=== PATIENT | female | born 1975 | race Caucasian/White ===

== ENCOUNTER 2017-03-07 20:11 | Emergency (ER) | payer OTHER ==
[~2017-03-07] VITALS: Ht 154.9 cm; Wt 62.0 kg
[~2017-03-07 20:11] MED LIST: ALL DAY ALLERGY10 MG PO; BENTYL20 MG PO; BUTALB-CAFF-AC1 EACH PO; CARISOPRODOL350 MG PO; CETIRIZINE HCL10 M2 PO; FIORICET,ESG1 TABLET PO; GABAPENTIN400 MG PO; HYDROCHLOROTHIA25 MG PO; HYDROCODON-ACE1 EAC8 PO; LEVAQUIN500 MG PO; LIDODERM 5% P1 PATCH TD; LODINE200 MG PO; LYRICA100 MG PO; METHADONE HCL40 MG PO; MOBIC15 MG PO; MORPHINE SULFAT15 M1 PO; MORPHINE SULFAT30 M2 PO; MOTRIN400 MG PO; MOTRIN800 MG PO; NEURONTIN600 MG PO; ONDANSETRON HCL4 MG PO; PERCOCET 5/31 TABLET PO; PREDNISONE20 MG PO; PROMETHAZINE HC25 M1 PO; REGLAN10 MG PO; TOPAMAX50 MG PO; TOPIRAMATE25 MG PO; TORADOL10 MG PO; TYLENOL WITH C1 EACH PO; VENTOLIN HFA18 GM IH; VICODIN,LORT1 TABLET PO; VOLTAREN75 MG PO; ZOCOR20 MG PO
[2017-03-07 21:12] LABS: HEMATOCRIT 46.3 % (36.0-46.0); MCH 30.2 PG (29.0-34.0); MCHC 33.5 G/DL (30.0-36.0); MCV 90.3 FL (83-99); RBC DIS.WIDTH-SD 42.8 % (39-53); RED BLOOD COUNT 5.13 M/uL (3.80-5.20); WHITE BLOOD COUNT 10.3 K/uL (4.1-10.2)
[2017-03-07 21:44] LABS: CHLORIDE 113 mEq/L (99-109); POTASSIUM 3.3 mEq/L (3.7-5.4); SODIUM 139 mEq/L (136-147)
[2017-03-07 21:46] LABS: ADD MIUA? NO; BILIRUBIN NEGATIVE; BLOOD NEGATIVE; COLOR YELLOW ((YELLOW)); GLUCOSE (STRIP) NEGATIVE; KETONES NEGATIVE; LEUKOCYTES NEGATIVE; NITRITE NEGATIVE; PROTEIN (STRIP) NEGATIVE; SPECIFIC GRAVITY 1.012 (1.000-1.030); UCUL ADDED? NO; UROBILINOGEN 0.2 MG/DL (0.2-1.0)
[2017-03-07 21:46] LABS: GLUCOSE 84 mg/dL (70-99)
[2017-03-07 21:47] LABS: ANION GAP 7 MEQ/L (2-14)
[2017-03-07 21:48] LABS: TOTAL BILIRUBIN 0.2 mg/dL (0.0-1.0)
[2017-03-07 21:49] LABS: ALKALINE PHOSPHATASE 73 IU/L (3-129)
[2017-03-07 21:50] LABS: GFR ESTIMATE (CALCULATED) > 59 mL/min/
[2017-03-07 21:51] LABS: UREA NITROGEN (BUN) 7 mg/dL (9-23)
[2017-03-07 21:53] LABS: LIPASE 9 U/L (1.0-51.0)
[2017-03-07 21:59] LABS: QUANTITATIVE HCG < 4.0 MIU/ML
[2017-03-07 22:25] LABS: MEAN PLAT.VOLUME 11.6 uM^3 (9.5-12.4); PLAT.SUFFICIENCY ADEQUATE; PLATELET COUNT 212 K/uL (156-360)
[2017-03-08] MEDS ORDERED: CIPRO500 MG PO (00:19)
[2017-03-08] MEDS ORDERED: ZOFRAN ODT4 MG PO (00:21)
[2017-03-08 00:31] VITALS: BP 127/90
== END 2017-03-08 00:32 | disposition home or self-care (01) ==
LOC: EME 20:11
PROVIDERS: Physician Assistant Medical
DX: R19.7 Diarrhea, unspecified (principal); R11.2 Nausea with vomiting, unspecified; R10.31 Right lower quadrant pain; R10.32 Left lower quadrant pain; I10 Essential (primary) hypertension; D25.9 Leiomyoma of uterus, unspecified; F17.200 Nicotine dependence, unspecified, uncomplicated; Z88.0 Allergy status to penicillin
CPT/HCPCS: 74177; 76856; 80053; 81003; 83690; 84702; 85027; 99281; 99285; J1885; J2405; J7030

== ENCOUNTER 2017-04-19 05:27 | Day surgery (SDC) | payer OTHER ==
[~2017-04-19] VITALS: Ht 158.8 cm; Wt 61.3 kg
[~2017-04-19 05:27] MED LIST changes: +CIPRO500 MG PO; +COMBIVENT RESPIM4 GM IH; +EPIPEN ADU0.3 MG/0.3 IM; +FIORICET WI1 CAPSULE PO; +FLONASE16 G1 BOTH NARES; +LYRICA150 MG PO; +MORPHINE SULFAT30 M5 PO; +SOMA350 MG PO; +ZOFRAN ODT4 MG PO; +ZOFRAN4 MG PO; +ZYRTEC10 M3 PO
[2017-04-19 12:35] VITALS: BP 111/68
[2017-04-19 13:10] VITALS: BP 117/71
== END 2017-04-19 13:15 | disposition home or self-care (01) ==
LOC: SDC 05:27
DX: N94.6 Dysmenorrhea, unspecified (principal); D25.1 Intramural leiomyoma of uterus; N83.02 Follicular cyst of left ovary; N83.01 Follicular cyst of right ovary; J44.9 Chronic obstructive pulmonary disease, unspecified; K21.9 Gastro-esophageal reflux disease without esophagitis; G89.29 Other chronic pain; M54.17 Radiculopathy, lumbosacral region; Z86.718 Personal history of other venous thrombosis and embolism; K59.09 Other constipation; F90.9 Attention-deficit hyperactivity disorder, unspecified type; F17.210 Nicotine dependence, cigarettes, uncomplicated; G43.909 Migraine, unspecified, not intractable, without status migrainosus; Z88.0 Allergy status to penicillin; Z88.1 Allergy status to other antibiotic agents; Z88.2 Allergy status to sulfonamides; Z82.49 Family history of ischemic heart disease and other diseases of the circulatory system; Z83.3 Family history of diabetes mellitus; Z80.3 Family history of malignant neoplasm of breast; Z82.3 Family history of stroke
CPT/HCPCS: 88307; 94640; J0131; J1100; J1170; J1580; J1885; J2250; J2405; J3010; J7050; Q0175

== ENCOUNTER 2017-04-28 15:01 | Emergency (ER) | payer OTHER ==
[~2017-04-28] VITALS: Ht 157.5 cm; Wt 61.2 kg
[2017-04-28 17:06] LABS: ADD MIUA? YES; BILIRUBIN NEGATIVE; BLOOD SMALL; COLOR YELLOW ((YELLOW)); GLUCOSE (STRIP) NEGATIVE; KETONES NEGATIVE; LEUKOCYTES LARGE; NITRITE NEGATIVE; PROTEIN (STRIP) 30; SPECIFIC GRAVITY 1.025 (1.000-1.030); UROBILINOGEN 0.2 MG/DL (0.2-1.0)
[2017-04-28 17:27] LABS: BACTERIA RARE /HPF; EPITHELIAL CELLS 3+ /HPF; MUCUS 4+ /LPF; RED BLOOD CELLS 0-5 /HPF (0-5)
[2017-04-28 17:45] LABS: BASOPHIL COUNT 0.1 K/uL (0-0.1); EOSINOPHIL (%) 3.2 % (0-5); EOSINOPHIL COUNT 0.3 K/uL (0-0.3); HEMATOCRIT 43.1 % (36.0-46.0); IMMATURE GRANULOCYTE (%) 0.6 % (0.0-0.7); IMMATURE GRANULOCYTE COUNT 0.1 K/uL; INSTRUMENT ABS NEUTROPHIL CT 4.9 K/uL; LYMPHOCYTE COUNT 2.7 K/uL (1.0-2.8); MCH 30.8 PG (29.0-34.0); MCHC 33.2 G/DL (30.0-36.0); MCV 92.7 FL (83-99); MEAN PLAT.VOLUME 11.7 uM^3 (9.5-12.4); MONOCYTE (%) 5.7 % (3-12); MONOCYTE COUNT 0.5 K/uL (0-0.8); NEUTROPHIL (%) 57.5 % (45-76); NEUTROPHIL COUNT 4.9 K/uL (1.8-6.4); RBC DIS.WIDTH-CV 12.8 % (11.8-14.6); RBC DIS.WIDTH-SD 43.8 % (39-53); RED BLOOD COUNT 4.65 M/uL (3.80-5.20); WHITE BLOOD COUNT 8.5 K/uL (4.1-10.2)
[2017-04-28 17:49] LABS: CHLORIDE 109 mEq/L (99-109); PLATELET COUNT 167 K/uL (156-360); POTASSIUM 3.8 mEq/L (3.7-5.4); SODIUM 141 mEq/L (136-147)
[2017-04-28 17:52] LABS: GLUCOSE 104 mg/dL (70-99)
[2017-04-28 17:53] LABS: ANION GAP 11 MEQ/L (2-14); TOTAL BILIRUBIN 0.2 mg/dL (0.0-1.0)
[2017-04-28 17:55] LABS: ALKALINE PHOSPHATASE 93 IU/L (3-129); GFR ESTIMATE (CALCULATED) > 59 mL/min/
[2017-04-28 17:56] LABS: UREA NITROGEN (BUN) 11 mg/dL (9-23)
[2017-04-28 17:59] LABS: LIPASE 4 U/L (1.0-51.0)
[2017-04-28] MEDS ORDERED: BENTYL20 MG PO (18:25)
[2017-04-28] MEDS ORDERED: ZOFRAN ODT4 MG PO (18:25)
[2017-04-28] MEDS ORDERED: MOTRIN600 MG PO (18:26)
[2017-04-28] MEDS ORDERED: MIRALAX255 GM PO (18:29)
[2017-04-28 19:01] VITALS: BP 123/72
== END 2017-04-28 19:02 | disposition home or self-care (01) ==
LOC: EME 15:01
PROVIDERS: Physician Assistant
DX: G89.18 Other acute postprocedural pain (principal); R10.9 Unspecified abdominal pain; K59.00 Constipation, unspecified; Z90.710 Acquired absence of both cervix and uterus; K21.9 Gastro-esophageal reflux disease without esophagitis; I10 Essential (primary) hypertension; F17.200 Nicotine dependence, unspecified, uncomplicated
CPT/HCPCS: 74022; 80053; 81003; 83690; 85025; 99281; 99284; J1885; J7030

== ENCOUNTER 2017-09-19 17:13 | Emergency (ER) | payer OTHER ==
[~2017-09-19] VITALS: Ht 154.9 cm; Wt 67.9 kg
[~2017-09-19 17:13] MED LIST changes: +LORATADINE10 M2 PO; +MIRALAX255 GM PO; +MOTRIN600 MG PO
[2017-09-19 18:33] LABS: HEMATOCRIT 40.5 % (36.0-46.0); HEMOGLOBIN 13.7 G/DL (11.9-15.5); MCH 31.1 PG (29.0-34.0); MCHC 33.8 G/DL (30.0-36.0); PLATELET COUNT 166 K/uL (156-360); RBC DIS.WIDTH-CV 12.2 % (11.8-14.6); RBC DIS.WIDTH-SD 41.3 % (39-53); WHITE BLOOD COUNT 6.6 K/uL (4.1-10.2)
[2017-09-19 18:42] LABS: CHLORIDE 107 mEq/L (99-109); POTASSIUM 3.7 mEq/L (3.7-5.4); SODIUM 140 mEq/L (136-147)
[2017-09-19 18:44] LABS: GLUCOSE 94 mg/dL (70-99)
[2017-09-19 18:47] LABS: CREATININE 1.1 mg/dL (0.6-1.3); GFR ESTIMATE (CALCULATED) 58 mL/min/
[2017-09-19 18:48] LABS: UREA NITROGEN (BUN) 13 mg/dL (9-23)
[2017-09-19 18:55] LABS: TROP-I INTERPRETATION NEGATIVE; TROPONIN-I < 0.01 ng/mL (0.0-0.30)
[2017-09-19 20:14] VITALS: BP 102/72
== END 2017-09-19 20:17 | disposition home or self-care (01) ==
LOC: EME 17:13
PROVIDERS: Physician Assistant
DX: M79.602 Pain in left arm (principal); F41.9 Anxiety disorder, unspecified; I10 Essential (primary) hypertension; F17.200 Nicotine dependence, unspecified, uncomplicated; K21.9 Gastro-esophageal reflux disease without esophagitis; Z88.1 Allergy status to other antibiotic agents; Z88.2 Allergy status to sulfonamides; Z88.0 Allergy status to penicillin
CPT/HCPCS: 71046; 80048; 84484; 85027; 93005; 93971; 99281; 99283

== ENCOUNTER 2017-11-02 11:53 | Emergency (ER) | payer OTHER ==
[~2017-11-02] VITALS: Ht 154.9 cm; Wt 68.7 kg
[2017-11-02 13:09] LABS: HEMATOCRIT 40.2 % (36.0-46.0); HEMOGLOBIN 13.4 G/DL (11.9-15.5); MCH 31.1 PG (29.0-34.0); MCHC 33.3 G/DL (30.0-36.0); MCV 93.3 FL (83-99); PLATELET COUNT 160 K/uL (156-360); RBC DIS.WIDTH-CV 13.2 % (11.8-14.6); RBC DIS.WIDTH-SD 45.2 % (39-53); RED BLOOD COUNT 4.31 M/uL (3.80-5.20); WHITE BLOOD COUNT 11.6 K/uL (4.1-10.2)
[2017-11-02 13:23] LABS: ALBUMIN 3.5 g/dL (3.2-4.8); CHLORIDE 103 mEq/L (99-109); POTASSIUM 3.8 mEq/L (3.7-5.4); SODIUM 141 mEq/L (136-147)
[2017-11-02 13:25] LABS: GLUCOSE 78 mg/dL (70-99); TOTAL PROTEIN 6.3 g/dL (6.4-8.3)
[2017-11-02 13:27] LABS: TOTAL BILIRUBIN 0.1 mg/dL (0.0-1.0)
[2017-11-02 13:29] LABS: ALKALINE PHOSPHATASE 114 IU/L (3-129); CREATININE 0.9 mg/dL (0.6-1.3); GFR ESTIMATE (CALCULATED) > 59 mL/min/
[2017-11-02 13:30] LABS: UREA NITROGEN (BUN) 13 mg/dL (9-23)
[2017-11-02 13:31] LABS: AST (GOT) 15 IU/L (2-34)
[2017-11-02 13:32] LABS: ALT (GPT) 14 IU/L (3-49)
[2017-11-02 14:34] VITALS: BP 119/67
== END 2017-11-02 14:42 | disposition home or self-care (01) ==
LOC: EME 11:53 → RME 11:53
PROVIDERS: Nurse Practitioner Family
DX: H43.391 Other vitreous opacities, right eye (principal); R51 Headache; I10 Essential (primary) hypertension; K21.9 Gastro-esophageal reflux disease without esophagitis; F17.200 Nicotine dependence, unspecified, uncomplicated; Z88.2 Allergy status to sulfonamides; Z88.1 Allergy status to other antibiotic agents; Z88.0 Allergy status to penicillin; Z88.8 Allergy status to other drugs, medicaments and biological substances
CPT/HCPCS: 80053; 85027; 99281; 99284